=== PATIENT | female | born 1990 | race Caucasian/White ===

== ENCOUNTER 2024-06-07 17:38 | Observation (INO) | payer OTHER ==
[2024-06-07 18:08] VITALS: BMI 29.0
[2024-06-07] MEDS ORDERED: morphine SULFATE 4 MG/ML VIAL ONE (18:28)
[2024-06-07] MEDS: morphine CARPU-JECT 4 MG/1 ML DISP.SYRIN IVPUSH ONE (18:33)
[2024-06-07 18:46] LABS: ABSOLUTE IMMATURE GRANULOCYTES 0.01 x10^3/uL (0.0-0.031); BASOPHILS # 0.02 x10^3/uL (0.01-0.08); EOSINOPHIL % 0.9 % (0.7-5.8); EOSINOPHILS # 0.07 x10^3/uL (0.04-0.36); HEMOGLOBIN 11.8 g/dL (11.2-15.7); INR 1.06 (0.83-1.09); MCHC 33.7 g/dl (32.2-35.5); MEAN CELL VOLUME 89.7 fl (79.4-94.8); MEAN PLT VOLUME 13.3 fl (9.4-12.3); MONOCYTE # 0.48 x10^3/uL (0.24-0.86); MONOCYTE % 6.3 % (4.7-12.5); PLATELET COUNT 185 x10^3/uL (182-369); PROTHROMBIN TIME (PATIENT) 11.8 SEC (9.7-13.0); RDW 13.5 % (12.1-16.8)
[2024-06-07 18:56] LABS: ALBUMIN 4.1 g/dl (3.4-5.0); ALK PHOS 44 U/L (45-117); ANION GAP 9 mmol/L (4-13); BILIRUBIN,TOTAL 0.5 mg/dl (0.2-1); CALCIUM 9.5 mg/dl (8.5-10.1); CHLORIDE 102 mmol/L (98-107); CO2 28 mmol/L (21-32); CREATININE 0.7 mg/dl (0.6-1.3); GLUCOSE,RANDOM 90 mg/dl (74-106); POTASSIUM 4.1 mmol/L (3.5-5.1); SGOT/AST 14 U/L (15-37); SGPT/ALT 15 U/L (7-52); SODIUM 139 mmol/L (136-145); TOT PROT 6.5 g/dl (6.4-8.2)
[2024-06-07 20:27] LABS: HCV DIAGNOSTIC IN-HOUSE W/RFLX NON-REACTIVE (NONREACTIVE); HIV INTERPRETATION NEGATIVE (NEGATIVE)
[2024-06-07] MEDS: morphine SULFATE 4 MG/ML VIAL IVPUSH PRN (22:45)
[2024-06-08] MEDS: ACETAMINOPHEN 1000 MG/100 ML BAG IVPB PRN (01:37)
[2024-06-08] MEDS ORDERED: morphine SULFATE 4 MG/ML VIAL IVPUSH PRN (07:42)
[2024-06-08 08:49] LABS: BASOPHILS # 0.04 x10^3/uL (0.01-0.08); EOSINOPHIL % 1.3 % (0.7-5.8); HEMATOCRIT 33.4 % (34.1-44.9); HEMOGLOBIN 11.3 g/dL (11.2-15.7); MCHC 33.8 g/dl (32.2-35.5); MEAN CELL VOLUME 90.3 fl (79.4-94.8); MEAN PLT VOLUME 14.1 fl (9.4-12.3); MONOCYTE # 0.56 x10^3/uL (0.24-0.86); MONOCYTE % 7.1 % (4.7-12.5); PLATELET COUNT 162 x10^3/uL (182-369); RDW 13.7 % (12.1-16.8)
[2024-06-08 09:26] LABS: CREATININE 0.6 mg/dl (0.6-1.3); POTASSIUM 4.4 mmol/L (3.5-5.1)
[2024-06-08] MEDS: KETOROLAC TROMETHAMINE 30 MG/1 ML VIAL IVPUSH PRN (09:45)
[2024-06-08] MEDS: POLYETHYLENE GLYCOL (HEALTHYLAX) 3350 17 GM PACKET PO SCH (12:27)
[2024-06-08] MEDS: DOCUSATE SODIUM 100 MG CAPSULE (FP) PO SCH (12:27)
[2024-06-09 07:49] LABS: HEMOGLOBIN 10.9 g/dL (11.2-15.7); MCHC 34.1 g/dl (32.2-35.5); MEAN CELL VOLUME 89.4 fl (79.4-94.8); MEAN PLT VOLUME 13.3 fl (9.4-12.3); PLATELET COUNT 165 x10^3/uL (182-369); RDW 13.5 % (12.1-16.8)
[2024-06-09 08:11] LABS: INR 1.12 (0.83-1.09); PROTHROMBIN TIME (PATIENT) 12.4 SEC (9.7-13.0)
[2024-06-09 09:10] LABS: CALCIUM 8.7 mg/dl (8.5-10.1); CREATININE 0.6 mg/dl (0.6-1.3); POTASSIUM 4.4 mmol/L (3.5-5.1)
[2024-06-09] MEDS ORDERED: MIDAZOLAM HCL 2 MG/2 ML SINGLE DOSE VIAL ONE (15:29)
[2024-06-09] MEDS ORDERED: ROPIVACAINE HCL/PF 100 MG/20 ML VIAL ONE (15:29)
[2024-06-09] MEDS ORDERED: FENTANYL CITRATE/PF 50 MCG/ML VIAL ONE (15:29)
[2024-06-09] MEDS ORDERED: DEXAMETHASONE SOD PHOSPHATE 10 MG/1 ML VIAL ONE (15:29)
[2024-06-09] MEDS ORDERED: PROPOFOL 20 ML ONE (15:34)
[2024-06-09] MEDS ORDERED: ePHEDrine SULFATE 50 MG/1 ML AMPULE ONE (16:16)
[2024-06-09] MEDS ORDERED: HYDROmorphone HCL/PF 1 MG/ML VIAL ONE (17:41)
[2024-06-09] MEDS ORDERED: ONDANSETRON 4 MG/2 ML VIAL IVPUSH PRN (18:56)
[2024-06-09] MEDS ORDERED: MAG HYDROX/AL HYDROX/SIMETH 30 ML UNIT-DOSE CUP PO PRN (18:56)
[2024-06-09] MEDS ORDERED: LACTATED RINGERS SOLUTION 1,000 ML IV SCH (19:00)
[2024-06-09] MEDS ORDERED: oxyCODONE HCL 5 MG TABLET PO PRN (19:08)
[2024-06-09] MEDS: PROMETHAZINE HCL 25 MG/1 ML VIAL IVPB PRN (19:30)
[2024-06-09] MEDS: LACTATED RINGERS SOLUTION 1,000 ML IV SCH (19:36)
[2024-06-09] MEDS ORDERED: LACTATED RINGERS SOLUTION 1,000 ML/1,000 ML INFUS.BAG IV SCH (20:03)
[2024-06-09 20:54] VITALS: RESP 18
[2024-06-09] MEDS: GABAPENTIN 300 MG CAPSULE PO SCH (22:21)
[2024-06-09] MEDS: SENNOSIDES/DOCUSATE COMBO (SENNA PLUS) TABLET (UD) PO SCH (22:21)
[2024-06-09] MEDS: DOCUSATE SODIUM 100 MG CAPSULE (FP) PO SCH (22:22)
[2024-06-09] MEDS: CEFAZOLIN 2 GM/D5W 2 GM/50 ML ML IVPB SCH (23:29)
[2024-06-09] MEDS: KETOROLAC TROMETHAMINE 30 MG/1 ML VIAL IVPUSH PRN (23:34)
[2024-06-10 08:13] LABS: HEMOGLOBIN 9.9 g/dL (11.2-15.7); MCHC 34.1 g/dl (32.2-35.5); MEAN CELL VOLUME 89.8 fl (79.4-94.8); MEAN PLT VOLUME 13.3 fl (9.4-12.3); PLATELET COUNT 158 x10^3/uL (182-369); RDW 13.5 % (12.1-16.8)
[2024-06-10 09:04] LABS: CALCIUM 8.7 mg/dl (8.5-10.1); CREATININE 0.6 mg/dl (0.6-1.3); POTASSIUM 4.5 mmol/L (3.5-5.1)
[2024-06-10] MEDS: PANTOPRAZOLE 40 MG TABLET PO SCH (09:37)
[2024-06-10] MEDS: MULTIVITAMINS (DAILY MVI) TABLET (FP) PO SCH (09:37)
[2024-06-10] MEDS: ASPIRIN COATED 81 MG TABLET.EC PO SCH (09:37)
[2024-06-10] MEDS: POLYETHYLENE GLYCOL (HEALTHYLAX) 3350 17 GM PACKET PO SCH (09:38)
[2024-06-10] MEDS: oxyCODONE HCL 5 MG TABLET PO PRN (14:13)
[2024-06-10] MEDS: LACTATED RINGERS SOLUTION 1,000 ML/1,000 ML INFUS.BAG IV SCH (15:41)
[2024-06-10] MEDS: ACETAMINOPHEN 1000 MG/100 ML BAG IVPB SCH (16:04)
[2024-06-10 20:21] VITALS: BP 110/63; PULSE 71; TEMP 98.1
== END 2024-06-10 21:45 | disposition home or self-care (01) ==
LOC: FER 17:38 → FM/S 21:07
PROVIDERS: ADMIT Hospitalist
PROC: 3E033NZ Introduction of Analgesics, Hypnotics, Sedatives into Peripheral Vein, Percutaneous Approach (ICD-10-PCS; principal; 2024-06-07)
PROC: 3E03329 Introduction of Other Anti-infective into Peripheral Vein, Percutaneous Approach (ICD-10-PCS; 2024-06-07)
PROC: 3E0333Z Introduction of Anti-inflammatory into Peripheral Vein, Percutaneous Approach (ICD-10-PCS; 2024-06-07)
PROC: 0QSK04Z Reposition Left Fibula with Internal Fixation Device, Open Approach (ICD-10-PCS; 2024-06-07)
PROC: 0QSH04Z Reposition Left Tibia with Internal Fixation Device, Open Approach (ICD-10-PCS; 2024-06-07)
DX: S82.862A Displaced Maisonneuve's fracture of left leg, initial encounter for closed fracture (principal); S93.422A Sprain of deltoid ligament of left ankle, initial encounter; W18.39XD Other fall on same level, subsequent encounter; Y93.79 Activity, other specified sports and athletics; Y92.89 Other specified places as the place of occurrence of the external cause
CPT/HCPCS: 36415; 73610-TC-LT-FY; 73700-TC-RT; 80048; 80053; 81003; 84703; 85025; 85027; 85610; 86803; 86850; 86900; 86901; 87086; 87389; 93005; 94760; 97116-GP; 97162-GP; 99285-25; C1713; G0378; J0131; J1100

== ENCOUNTER 2024-07-16 15:38 | Emergency (ER) | payer OTHER ==
[2024-07-16 15:43] VITALS: BP 100/72; PULSE 74; RESP 19; TEMP 98.1; BMI 28.8
== END 2024-07-16 17:00 | disposition home or self-care (01) ==
LOC: FER 15:38
DX: M25.572 Pain in left ankle and joints of left foot (principal); W01.0XXA Fall on same level from slipping, tripping and stumbling without subsequent striking against object, initial encounter
CPT/HCPCS: 73070-TC-LT-FY; 73090-TC-LT-FY; 73110-TC-LT-FY; 73130-TC-LT-FY; 73590-TC-LT-FY; 73610-TC-LT-FY; 73630-TC-LT; 99284-25